=== PATIENT | female | born 1975 | race Caucasian/White ===

== ENCOUNTER 2018-09-03 10:45 | Emergency (ER) | payer MEDICARE, MEDICAID ==
[~2018-09-03] VITALS: Ht 170.2 cm; Wt 115.7 kg
[~2018-09-03 10:45] MED LIST: ALBU17AE3; ALPR1T PO; CRS350T PO; CYCL10TA9 PO; DEXL60CA PO; GBPN100C PO; HYDR1TAB PO; OXYC-281 PO; OXYC20TA4; OXYC20TA63 PO; TOPI200T19 PO
--- OUTSIDE RECORDS SUMMARY | 2018-09-03 10:55 | XMS REPORT | Continuity of Care Document ---
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 [facility] KZTHR [id number] 04/18/2018 11:42:44 04/18/2018 23:59:00 DIS Outpatient NADEGE GREGORIO [facility] PAIN [id number] 04/13/2018 09:26:32 04/13/2018 23:59:59 CLS Outpatient JUANITO BASS [facility] [id number] 04/13/2018 08:59:49 04/13/2018 23:59:59 CLS Outpatient [facility] [id number] [id number] 04/09/2018 09:15:19 04/09/2018 23:59:59 CLS Outpatient YANCY GAMEZ [facility] [id number] 04/03/2018 08:12:40 04/03/2018 23:59:59 CLS Outpatient JUANITO BASS [facility] [id number] [id number] 03/28/2018 09:50:23 03/28/2018 23:59:59 CLS Outpatient [facility] CODE [id number] 03/27/2018 08:50:36 03/27/2018 23:59:59 CLS Outpatient [facility] CODE [id number] 03/26/2018 11:26:02 03/26/2018 23:59:59 CLS Outpatient [facility] CODE [id number] 03/21/2018 10:13:26 03/21/2018 23:59:59 CLS Outpatient [facility] CODE [id number] 03/15/2018 09:39:38 03/15/2018 23:59:59 CLS Outpatient [facility] [id number] [id number] 03/15/2018 08:22:27 03/15/2018 23:59:59 CLS Outpatient NAI LARA [facility] [id number] [id number] 03/14/2018 09:15:09 03/14/2018 23:59:59 CLS Outpatient NICCI GAMBLE [facility] [id number] 02/28/2018 08:29:27 02/28/2018 23:59:59 CLS Outpatient MCLEOD TAMI [facility] [id number] 02/22/2018 07:49:07 02/22/2018 23:59:59 CLS Outpatient [facility] CODE [id number] 02/21/2018 08:21:57 02/21/2018 23:59:59 CLS Outpatient SOLA WRAY [facility] KZOR [id number] 02/21/2018 07:51:28 02/21/2018 23:59:59 CLS Outpatient [facility] CODE [id number] 02/19/2018 08:35:00 02/19/2018 23:59:59 CLS Outpatient [facility] CODE [id number] 02/19/2018 08:34:20 02/19/2018 23:59:59 CLS Outpatient KAROLYN STEARNS [facility] CODE [id number] 02/16/2018 07:47:17 02/16/2018 23:59:59 CLS Outpatient STEPHEN LOUIE [facility] CODE [id number] 02/09/2018 08:40:55 02/09/2018 23:59:59 CLS Outpatient LARA, [facility] [id number] 02/06/2018 09:18:32 02/06/2018 23:59:59 CLS Outpatient NICCI GAMBLE [place] [id number] 01/16/2018 08:53:54 01/16/2018 23:59:59 CLS Outpatient LARA, [facility] [id number] [id number] 01/05/2018 08:41:47 01/05/2018 23:59:59 CLS Outpatient JENNIFER LEVIN [facility] [id number] 12/23/2017 08:36:31 12/23/2017 23:59:00 [facility] [id number] 12/19/2017 10:45:58 12/19/2017 23:59:59 [facility] [id number] 12/13/2017 09:13:18 12/13/2017 23:59:59 CLS [facility] [id number] 11/21/2017 13:13:11 11/21/2017 23:59:59 CLS Outpatient LUH JARA [place] [id number] 11/17/2017 07:47:16 11/17/2017 23:59:59 CLS Outpatient TAMI MCLEOD [facility] [id number] 11/14/2017 08:15:35 11/14/2017 23:59:59 CLS Outpatient [place]LL[place] BAJWA [place] [id number] 11/08/2017 14:33:28 11/08/2017 23:59:59 CLS Outpatient [place] [id number] 11/08/2017 08:12:16 11/08/2017 23:59:59 CLS Outpatient [place] [id number] 10/10/2017 08:37:54 10/10/2017 23:59:59 CLS Outpatient [place] [id number] 10/03/2017 09:44:04 10/03/2017 23:59:59 CLS Outpatient [place] [id number] 09/27/2017 08:11:20 09/27/2017 23:59:59 CLS Outpatient LUH JARA [place] [id number] 09/19/2017 12:57:26 09/19/2017 23:59:59 CLS Outpatient ANJALI EUCEDA [place] [id number] 08/31/2017 09:10:25 08/31/2017 23:59:59 CLS Outpatient BOUCHRA SELBY [facility] [id number] 08/21/2017 09:16:46 08/21/2017 23:59:59 CLS Outpatient LALY MCEKON [place] [id number] 08/14/2017 07:49:40 08/14/2017 23:59:59 CLS Outpatient [place] [id number] 08/01/2017 20:21:04 08/02/2017 07:46:00 DIS Outpatient VIVIANA RHOADES [facility] [id number] 08/01/2017 10:29:37 08/01/2017 23:59:59 CLS Outpatient [place] [id number] 07/27/2017 09:15:26 07/27/2017 23:59:59 CLS Outpatient [facility] [id number] 07/25/2017 09:53:56 07/25/2017 23:59:59 CLS Outpatient [facility] 901 [id number] 07/25/2017 09:41:32 07/25/2017 23:59:59 CLS Outpatient NAI LARA [facility] [id number] [id number] 07/24/2017 11:36:06 07/24/2017 23:59:59 CLS Outpatient [facility] [id number] 07/24/2017 11:03:33 07/24/2017 23:59:59 CLS Outpatient CRISPIN PARTIDA Martín [place] [id number] 07/17/2017 12:41:18 07/17/2017 23:59:59 CLS Outpatient NICCI GAMBLE [place] [id number] 07/11/2017 08:27:49 07/11/2017 23:59:59 [facility] [id number] [id number] 07/07/2017 08:40:40 07/07/2017 10:54:00 DIS Emergency ARELY TREVINO [facility] [id number] 06/27/2017 14:13:51 06/27/2017 23:59:59 CLS Outpatient JERRY NICOEL [facility] [id number] [id number] 06/26/2017 10:02:37 06/26/2017 23:59:59 CLS Outpatient [facility] [id number] [id number] 06/26/2017 08:38:49 06/26/2017 23:59:59 CLS Outpatient NAI LARA [facility] [id number] [id number] 06/19/2017 09:44:33 06/19/2017 23:59:59 CLS Outpatient VALORIE MCKEONSuzy Sanchez [facility] [id number] 05/29/2017 10:19:49 05/29/2017 23:59:59 [facility] [id number] [id number] 05/22/2017 12:46:41 05/22/2017 23:59:59 CLS Outpatient LUH JARA [facility] [id number] 04/24/2017 10:43:20 04/24/2017 23:59:59 CLS Outpatient LUH JARA [facility] [id number] 03/30/2017 09:56:33 03/30/2017 23:59:59 CLS Outpatient JANE [facility] [id number] [id number] 03/30/2017 08:16:00 03/30/2017 23:59:59 CLS Outpatient LUH JARA [facility] [id number] 03/15/2017 14:46:24 03/15/2017 23:59:59 CLS Outpatient [facility] [id number] [id number] 03/15/2017 13:04:54 03/15/2017 23:59:59 CLS Outpatient [facility] [id number] [id number] 03/15/2017 10:55:52 03/15/2017 23:59:59 CLS Outpatient [facility] 901 [id number] 02/24/2017 10:13:36 02/24/2017 23:59:59 CLS Outpatient [facility] [id number] [id number] 02/24/2017 10:12:32 02/24/2017 23:59:59 CLS Outpatient [facility] [id number] [id number] 02/24/2017 08:49:20 02/24/2017 23:59:59 CLS Outpatient [facility] [id number] [id number] 02/21/2017 09:28:45 02/21/2017 23:59:59 CLS Outpatient [facility] [id number] 02/21/2017 08:37:39 02/21/2017 23:59:59 CLS Outpatient CHAMPLUH JEAN [facility] [id number] 01/25/2017 10:58:50 01/25/2017 23:59:59 CLS Outpatient [facility] [id number] [id number] 01/25/2017 09:35:12 01/25/2017 23:59:59 CLS Outpatient [facility] [id number] [id number] 01/13/2017 13:57:51 01/13/2017 23:59:59 CLS Outpatient [facility] 823 [id number] 08/23/2018 17:06:55 Document Registration [id number] 08/08/2018 11:19:48 Document Registration [id number] 08/02/2018 15:43:36 Document Registration [id number] 07/27/2018 09:23:18 Document Registration [id number] 07/23/2018 20:47:45 Document Registration [id number] 07/10/2018 10:15:49 Document Registration [id number] 05/28/2018 11:13:46 Document Registration [id number] 05/02/2018 12:18:12 Document Registration [id number] 04/02/2018 11:00:07 Document Registration [id number] 03/12/2018 11:30:26 Document Registration [id number] 03/01/2018 13:45:07 Document Registration [id number] 01/16/2018 09:49:48 Document Registration [id number] 12/20/2017 14:09:03 Document Registration [id number] 11/22/2017 15:00:01 Document Registration [id number] 10/17/2017 08:59:46 Document Registration [id number] 08/08/2017 11:28:57 Document Registration [id number] 06/26/2017 09:45:21 Document Registration
--- NOTE | 2018-09-03 11:05 | ED General ---
General Stated Complaint: FALL; RT ANKLE INJ History of Present Illness Date Seen by Provider: Sep 03, 2018 Time Seen by Provider: 11:05 Initial Comments Patient presenting to the emergency department for evaluation of right ankle pain status post fall yesterday evening. Patient says that she was in slippers on a hardwood floor and thinks that she inverted her right ankle and it has been quite painful and she has been able to put minimal weight on her right foot and has been walking with 1 crutch. No weakness numbness or tingling and she denies any other injuries. Allergies and Home Medications Allergies Coded Allergies: HAYLEEANo Known Allergies (Unverified Allergy, Mild, 03/04/09) Home Medications Alprazolam 1 Mg Tablet, 1 TAB PO BID PRN, (Reported) Carisoprodol 350 Mg Tablet, 1 TAB PO TID, (Reported) Dexlansoprazole 60 Mg Cap., 60 MG PO DAILY, (Reported) Gabapentin 100 Mg Cap, 100 MG PO BID, (Reported) Oxycodone Hcl 20 Mg Tab.sr.12h, 1 PO PRN, (Reported) Oxycodone Hcl/Acetaminophen 1 Each Tablet, 1 EACH PO PRN, (Reported) Topiramate 200 Mg Tablet, 200 MG PO DAILY, (Reported) Patient Home Medication List Home Medication List Reviewed: Yes Review of Systems Review of Systems Constitutional: no symptoms reported Musculoskeletal: joint pain All Other Systems Reviewed Negative Unless Noted: Yes Physical Exam Vital Signs Vital Signs - First Documented 09/03/18 11:05 Temp 96.2 Pulse 75 Resp 18 B/P (MAP) 119/53 (75) Pulse Ox 98 O2 Delivery Room Air Capillary Refill : Height, Weight, BMI Height: '" Weight: lbs. oz. kg; BMI Method:Stated General Appearance: No Apparent Distress, WD/WN Respiratory: No Respiratory Distress Extremity: Normal Capillary Refill, Other (R ankle with pain and swelling on l ateral and medial malleolus. No bony foot or proximal tib-fib pain.) Neurologic/Psychiatric: No Motor/Sensory Deficits Skin: Normal Color, Warm/Dry Comments 2+ DP BL with normal sensation. Progress/Results/Core Measures Suspected Sepsis SIRS Temperature: Pulse: Respiratory Rate: Blood Pressure / Mean: Results/Orders My Orders Orders - GEE CAMERON DO Ankle 3 View Right (6/24/19 11:13) Hydromorphone Injection (Dilaudid Inject (09/03/18 11:45) Vital Signs/I&O 09/03/18 11:05 Temp 96.2 Pulse 75 Resp 18 B/P (MAP) 119/53 (75) Pulse Ox 98 O2 Delivery Room Air Capillary Refill : Progress Note : Progress Note Patient with medial malleolus fracture. She was put in splint and made non weight bearing. She was NV intact pre and post splinting. She says she is from [place] and going to see her PCP tomorrow and would like to get the referral herself rather than us doing it. Patient takes naproxen and percocet for chronic back pain already. Will give dilaudid IM here and she was told she could take her home meds 4 hours after leaving. Patient will be discharged in stable condition told to follow with PCP tomorrow and come back with any concerns. Patient aware and agreeable with plan. Departure Impression Primary Impression: Fracture of ankle Qualified Codes: S82.891A - Other fracture of right lower leg, initial encou nter for closed fracture Disposition: HOME, SELF-CARE Condition: Stable Departure-Patient Inst. Referrals: NO,LOCAL PHYSICIAN (PCP/Family) Primary Care Physician Patient Instructions: Ankle Fracture (DC) GEE CAMERON DO Sep 03, 2018 11:05
--- NOTE | 2018-09-03 11:40 | Diagnostic Imaging Report ---
INDICATION: Fall with right ankle pain and injury. TIME OF EXAM: 11:05 a.m. Three views of the right ankle were obtained. FINDINGS: There is a vertically oriented fracture through the medial malleolus. No significant displacement or angulation is seen. Distal fibula is intact. Ankle mortise is well maintained. Talar dome is smooth. There is a large plantar calcaneal spur. IMPRESSION: Acute vertically oriented fracture through the medial malleolus. Dictated by: Dictated on workstation # [id number]
[2018-09-03] MEDS ORDERED: HYDROmorphone 2 MG/ML VIAL (DILAUDID) IM ONE (11:45)
[2018-09-03 12:09] VITALS: BP 147/106
== END 2018-09-03 12:09 | disposition home or self-care (01) ==
LOC: EDUNIT# 10:45 → ER FS 10:50
DX: S82.51XA Displaced fracture of medial malleolus of right tibia, initial encounter for closed fracture (principal); W01.0XXA Fall on same level from slipping, tripping and stumbling without subsequent striking against object, initial encounter
CPT/HCPCS: 29515; 73610